=== PATIENT | male | born 2000 ===

== ENCOUNTER 2021-03-23 15:54 | Emergency (ER) | payer OTHER ==
[~2021-03-23] VITALS: Ht 177.8 cm; Wt 73.3 kg
[2021-03-23] MEDS ORDERED: SODIUM CHLORIDE 0.9% 1,000ML IVBOLUS ONE (16:30)
[2021-03-23] MEDS ORDERED: SODIUM CHLORIDE FLUSH 10ML SYR IVF ONE (16:30)
--- NOTE | 2021-03-23 18:11 | NUR ---
supervisor cell operation: patient to room from lobby.
--- NOTE | 2021-03-23 19:02 | NUR ---
ED Nursing hand-off report given to GURPREET Calderón; questions answered
[2021-03-23 19:21] LABS: BASOPHILS % (AUTO) 0 % (0-1); EOSINOPHILS % (AUTO) 0 % (1-7); LYMPHOCYTES % (AUTO) 9 % (22-44); MEAN CORPUSCULAR HEMOGLOBIN 31.7 pg (27.5-34.5); MEAN CORPUSCULAR HGB CONC 34.2 g/dL (33.2-36.2); MEAN PLATELET VOLUME 7.9 fL (7.4-10.4); MONOCYTES % (AUTO) 5 % (2-9); NEUTROPHILS % (AUTO) 86 % (42-75); PLATELET COUNT 263 x10^3/uL (130-400); RED CELL DISTRIBUTION WIDTH 13.7 % (9.4-14.8)
[2021-03-23 19:29] LABS: ANION GAP 5 mmol/L (5-15); CHLORIDE 106 mmol/L (98-107); CREATININE 1.07 mg/dL (0.7-1.3)
--- NOTE | 2021-03-23 19:30 | NUR ---
PATIENT TAKEN TO IR WITH RN TO RECIEVE BLOOD PATCH. PATIENT VERABLIZED UNDERSTANDING OF SELF CARE AND PROCESS OF PLAN OF CARE. NO NOTED ACUTE DISTRESS. TOLERATING INTERVENTIONS WELL.
--- NOTE | 2021-03-23 20:14 | NUR ---
REPORT GIVEN TO GURPREET DEVINE
--- NOTE | 2021-03-23 20:39 | NUR ---
PT BACK TO ROOM. UNABLE TO GET BLOOD PATCH DUE TO NOT HAVING A RIGHT NEEDLE. NURSE TO CENTRAL SUPPLIES TO LOOK FOR CORRECT NEEDLE. WILL CONTINUE TO WATCH PT
--- NOTE | 2021-03-23 20:58 | NUR ---
PT TO IR WITH NURSE FOR BLOOD PATCH
--- NOTE | 2021-03-23 21:47 | NUR ---
PT BACK TO ROOM. PT TO LAY FLAT ON STOMACH FOR ONE HOUR. DIANNA.
--- NOTE | 2021-03-23 22:43 | NUR ---
PT REPORTS IMPROVEMENT IN STATUS. PT AMBULATED TO RESTROOM WITH ASSISTANCE.
[2021-03-23 23:29] VITALS: BP 112/68
== END 2021-03-23 23:31 | disposition home or self-care (01) ==
LOC: ED 19:18
DX: G97.1 Other reaction to spinal and lumbar puncture (principal)
CPT/HCPCS: 36415; 62273; 80048; 85025; 99284